=== PATIENT | female | born 1980 | race Hispanic/Latino ===

== ENCOUNTER 2021-02-21 08:42 | Emergency (ER) | payer OTHER, SELFPAY ==
--- OUTSIDE RECORDS SUMMARY | 2021-02-21 08:45 | XMS REPORT | Continuity of Care Document ---
:1980 Author Organization [facility] t Address [address] [place] [address] Care Team Providers Name Role Phone Doctor Unassigned, Name Attending Clinician Unavailable Dav Holloway Attending Clinician Problems This patient has no known problems. Allergies, Adverse Reactions, Alerts This patient has no known allergies or adverse reactions. Medications This patient has no known medications. Procedures This patient has no known procedures. Encounters Start End Encounter Admission Attending Care Care Encounter Source Date/Time Date/Time Type Type Clinicians Facility Department ID 2021-01-21 2021-01-21 Orders Doctor HASEEB [id number] 00:00:00 00:00:00 Only UnassignedDORON [id number] [place] [facility] [id number] 2021-01-14 2021-01-14 Telephone MIKE Mosley [id number] 00:00:00 00:00:00 Ingrid Demarco VENEER JOINTER OPERATOR [id number] [facility] [id number] MATERNAL [id number] & CHILD [address] [place] [address] Results This patient has no known results.
[2021-02-21] MEDS ORDERED: HYDROCODONE/APAP 5/325 MG TAB ONE (09:44)
--- NOTE | 2021-02-21 10:29 | ER ---
Nurse's Notes [facility] Name: Audrey Potter Age: 40 yrs Sex: Female : 1980 Arrival Date: 02/21/2021 Time: 08:46 Bed 16 Private MD: Diagnosis: Displaced fracture of head of right radius;Small avulsion fracture of head of right ulna Presentation: 02/21 08:54 Chief complaint: Fell out of parked van and landed on concrete onto right side, c/o hb right elbow and forearm pain /10. Care prior to arrival: None. Mechanism of Injury: Fall vehicle. Trauma event details: Injury occurred in the [facility], Injury occurred: at home. 08:54 Acuity: SHANA 4 hb 08:54 Method Of Arrival: Ambulatory hb 08:56 Coronavirus screen: At this time, the client does not indicate any symptoms associated hb with coronavirus-19. Ebola Screen: No symptoms or risks identified at this time. Initial Sepsis Screen: Does the patient meet any 2 criteria? No. Patient's initial sepsis screen is negative. Does the patient have a suspected source of infection? No. Patient's initial sepsis screen is negative. Risk Assessment: Do you want to hurt yourself or someone else? Patient reports no desire to harm self or others. Onset of symptoms was February 18, 2021. 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 - Social history:: Smoking status: Patient denies any tobacco usage or history of. Screenin:07 Abuse screen: Denies threats or abuse. Denies injuries from another. Nutritional hb screening: No deficits noted. Tuberculosis screening: No symptoms or risk factors identified. Fall Risk None identified. Assessment: 09:07 General: Appears in no apparent distress. Behavior is calm, cooperative. Pain: Pain hb currently is 8 out of 10 on a pain scale. Neuro: Level of Consciousness is awake, alert, obeys commands, Oriented to person, place, time, situation. Cardiovascular: Patient's skin is warm and dry. Respiratory: Respiratory effort is even, unlabored, Respiratory pattern is regular, symmetrical. GI: No signs and/or symptoms were reported involving the gastrointestinal system. : No signs and/or symptoms were reported regarding the genitourinary system. EENT: No signs and/or symptoms were reported regarding the EENT system. Derm: Skin is pink, warm \T\ dry. Musculoskeletal: Reports right elbow and forearm pain. 10:05 Reassessment: No changes from previously documented assessment. Patient and/or family ll1 updated on plan of care and expected duration. Pain level reassessed. 10:49 Musculoskeletal: Circulation, motion, and sensation intact. Capillary refill < 3 ll1 seconds. Vital Signs: 08:56 BP 115 / 69; Pulse 91; Resp 16; Temp 97.9(TE); Pulse Ox 98% on R/A; Weight 95.71 kg; hb Height 5 ft. 2 in. (157.48 cm); Pain 8/10; 08:56 Body Mass Index 38.59 (95.71 kg, 157.48 cm) hb ED Course: 08:46 Patient arrived in ED. mr 08:55 Triage completed. hb 08:57 Arm band placed on. hb 09:06 Smiley Alejandro RN is Primary Nurse. bw 09:07 Mikie Keita NP is PHCP. pm1 09:07 Jose Addison MD is Attending Physician. pm1 09:07 Patient has correct armband on for positive identification. Bed in low position. Call light in reach. Side rails up X 1. 09:35 Elbow Right 3 View XRAY In Process Unspecified. EDMS 09:35 Forearm Right XRAY In Process Unspecified. EDMS 10:20 Orthoglass splint: posterior long arm splint applied to the right arm. 4 10:49 No provider procedures requiring assistance completed. Patient did not have IV access ll1 during this emergency room visit. Administered Medications: 09:27 Drug: [place] (HYDROcodone-acetaminophen) 5 mg-325 mg 1 tabs Route: PO; bw 10:48 Follow up: Response: No adverse reaction; RASS: Alert and Calm (0) ll1 Outcome: 10:28 Discharge ordered by . pm1 10:50 Discharged to home ambulatory. ll1 10:50 Condition: stable 10:50 Discharge instructions given to patient, Instructed on discharge instructions, follow up and referral plans. medication usage, Demonstrated understanding of instructions, follow-up care, medications, splint care, Prescriptions given X 1. 10:50 Patient left the ED. ll1 Signatures: Dispatcher [employer] KIRBYMargarette Cox mr NeelaMikie, SAFETY ATTENDANT SAFETY ATTENDANT pm1 Melita Madison RN RN Mark Anthony Xavier 4 Joshua Minor, RN RN 1 Smiley Alejandro RN RN Corrections: (The following items were deleted from the chart) 08:58 08:54 Chief complaint: Fell out of parked van and landed on concrete onto right side, hb c/o right arm pain 06/23. hb 08:58 08:56 BP 115 / 69; Pulse 91bpm; Resp 16bpm; Pulse Ox 98% RA; Temp 97.9F Temporal; 95.71 hb kg; Height 5 ft. 2 in.; BMI: 38.5; Pain 7/10; hb
--- NOTE | 2021-02-21 10:29 | EDPHYS ---
Physician Documentation [facility] Name: Audrey Potter Age: 40 yrs Sex: Female : 1980 Arrival Date: 02/21/2021 Time: 08:46 Bed 16 Private MD: ED Physician Jose Addison HPI: 02/21 09:39 This 40 yrs old Female presents to ER via Ambulatory with complaints of Fall pm1 Injury, Arm Pain. 09:39 Details of fall: The patient fell from an upright position, while standing, and struck pm1 a concrete surface. Onset: The symptoms/episode began/occurred 2 day(s) ago. Associated injuries: The patient sustained right elbow, painful injury, swelling. Severity of symptoms: in the emergency department the symptoms are unchanged. The patient has not experienced similar symptoms in the past. The patient has not recently seen a physician. Patient was getting out of her van and the wind blew the door open. She tried to grab the door and fell out of the van landing on her right elbow. No head injury, LOC, neck pain, headache. 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 - Social history:: Smoking status: Patient denies any tobacco usage or history of. ROS: 09:39 Constitutional: Negative for fever, chills, and weight loss, Neck: Negative for injury, pm1 pain, and swelling, Cardiovascular: Negative for chest pain, palpitations, and edema, Respiratory: Negative for shortness of breath, cough, wheezing, and pleuritic chest pain, Abdomen/GI: Negative for abdominal pain, nausea, vomiting, diarrhea, and constipation, Back: Negative for injury and pain. 09:39 Skin: Negative for injury, rash, and discoloration, Neuro: Negative for headache, weakness, numbness, tingling, and seizure. 09:39 MS/extremity: Positive for pain, swelling, tenderness, of the right elbow. Exam: 09:39 Constitutional: This is a well developed, well nourished patient who is awake, alert, pm1 and in no acute distress. Head/Face: Normocephalic, atraumatic. 09:39 Back: No spinal tenderness. No costovertebral tenderness. Full range of motion. Skin: Warm, dry with normal turgor. Normal color with no rashes, no lesions, and no evidence of cellulitis. 09:39 Cardiovascular: Rate: normal, Rhythm: regular, Pulses: no pulse deficits are appreciated. 09:39 Respiratory: Exam negative for acute changes, respiratory distress, shortness of breath. 09:39 Musculoskeletal/extremity: Extremities: grossly normal except: noted in the right elbow: swelling, tenderness, There is no evidence of deformity, Circulation is intact in all extremities. 09:39 Neuro: Exam negative for acute changes, Orientation: is normal, Mentation: is normal, Motor: is normal, moves all fours. Vital Signs: 08:56 BP 115 / 69; Pulse 91; Resp 16; Temp 97.9(TE); Pulse Ox 98% on R/A; Weight 95.71 kg; hb Height 5 ft. 2 in. (157.48 cm); Pain 8/10; 08:56 Body Mass Index 38.59 (95.71 kg, 157.48 cm) hb Procedures: 10:50 Splinting: Splint applied to right arm using Orthoglass splint, applied by tech. pm1 Examined by me, post splint application: neurovascular intact, 2+ distal pulses palpable, brisk capillary refill noted, Patient tolerated well. MDM: 09:10 Patient medically screened. pm1 09:58 Data reviewed: vital signs. Data interpreted: Pulse oximetry: on room air is 98 %. pm1 Interpretation: normal. Counseling: I had a detailed discussion with the patient and/or guardian regarding: the historical points, exam findings, and any diagnostic results supporting the discharge/admit diagnosis, radiology results, the need for outpatient follow up, for definitive care, a orthopedic surgeon, to return to the emergency department if symptoms worsen or persist or if there are any questions or concerns that arise at home. 02/21 09:01 Order name: Elbow Right 3 View XRAY eb 02/21 09:01 Order name: Forearm Right XRAY eb 02/21 09:53 Order name: Splint - Elbow - Posterior; Complete Time: 10:20 pm1 Administered Medications: 09:27 Drug: [place] (HYDROcodone-acetaminophen) 5 mg-325 mg 1 tabs Route: PO; bw 10:48 Follow up: Response: No adverse reaction; RASS: Alert and Calm (0) ll1 Disposition: 16:38 Co-signature as Attending Physician, Jose Addison MD. rn Disposition: 02/21/21 10:28 Discharged to Home. Impression: Displaced fracture of head of right radius, Small avulsion fracture of head of right ulna. - Condition is Stable. - Discharge Instructions: Elbow Fracture Treated With ORIF, How to Use a Sling. - Prescriptions for Tylenol- Codeine #3 300-30 mg Oral Tablet - take 2 tablets by ORAL route every 4-6 hours As needed; 20 tablet. - Work release form, Medication Reconciliation Form, Thank You Letter, Antibiotic Education, Prescription Opioid Use form. - Follow up: Emergency Department; When: As needed; Reason: Worsening of condition. Follow up: Private Physician; When: 2 - 3 days; Reason: Recheck today's complaints, Continuance of care, Re-evaluation by your physician. - Problem is new. - Symptoms have improved. Signatures: Dispatcher [employer] EDMS Jose Addison MD MD rn Marinas, Patrick, FORMAL WEAR RENTAL CLERK FORMAL WEAR RENTAL CLERK pm1 Melita Madison RN RN hb Lewis, Lynsay, RN RN ll1 Smiley Alejandro RN RN Corrections: (The following items were deleted from the chart) 10:40 10:28 02/21/2021 10:28 Discharged to Home. Impression: Displaced fracture of head of pm1 right radius. Condition is Stable. Forms are Medication Reconciliation Form, Thank You Letter, Antibiotic Education, Prescription Opioid Use. Follow up: Emergency Department; When: As needed; Reason: Worsening of condition. Follow up: Private Physician; When: 2 - 3 days; Reason: Recheck today's complaints, Continuance of care, Re-evaluation by your physician. Problem is new. Symptoms have improved. pm1 10:50 10:40 02/21/2021 10:28 Discharged to Home. Impression: Displaced fracture of head of ll1 right radius; Small avulsion fracture of head of right ulna. Condition is Stable. Discharge Instructions: Elbow Fracture Treated With ORIF, How to Use a Sling. Prescriptions for Tylenol-Codeine #3 300-30 mg Oral Tablet - take 2 tablets by ORAL route every 4-6 hours As needed; 20 tablet. and Forms are Medication Reconciliation Form, Thank You Letter, Antibiotic Education, Prescription Opioid Use. Follow up: Emergency Department; When: As needed; Reason: Worsening of condition. Follow up: Private Physician; When: 2 - 3 days; Reason: Recheck today's complaints, Continuance of care, Re-evaluation by your physician. Problem is new. Symptoms have improved. pm1
--- NOTE | 2021-02-21 12:34 | RAD REPORT ---
EXAM DESCRIPTION: RAD - Forearm Right - 02/21/2021 9:35 am CLINICAL HISTORY: fall COMPARISON: Elbow Right 3 View dated 02/21/2021 FINDINGS: Comminuted radial head fracture is present further detailed on the separate elbow report. Remainder the radius is intact. No ulna fracture identified. No periosteal reaction. Carpal bones are normally positioned to the distal radius. Contusion and edema changes are present in the soft tissues entire length of the posterior forearm. IMPRESSION: Comminuted radial head fracture separately detailed. Contusion and/or edema changes to the posterior forearm soft tissues.
--- NOTE | 2021-02-21 12:39 | RAD REPORT ---
EXAM DESCRIPTION: RAD - Elbow Right 3 View - 02/21/2021 9:35 am CLINICAL HISTORY: fall, elbow pain COMPARISON: No comparisons FINDINGS: Radial head fracture is present with a large 15 millimeter displaced free fracture fragmen t present from the anterior margin of the radial head. This includes the articular surface. This is d isplaced laterally approximately 12 mm and displaced proximally approximately 2 cm. Transverse fractu re at the neck may be present but does not cause impaction or angulation deformity. No fracture of the distal humerus or proximal ulna. No foreign body. Soft tissue contusion and edema changes are present. IMPRESSION: Right radial head fracture is present. A 15 millimeter sized dislocated free fracture fr agment is present from the anterior margin.
[2021-02-21 17:23] VITALS: BP 115/69; TEMP 97.9; O2SAT 98
== END 2021-02-21 10:50 | disposition home or self-care (01) ==
LOC: ER 08:42
PROC: 2W38X1Z Immobilization of Right Upper Extremity using Splint (ICD-10-PCS; principal; 2021-02-21)
DX: S52.121A Displaced fracture of head of right radius, initial encounter for closed fracture (principal); S52.091A Other fracture of upper end of right ulna, initial encounter for closed fracture; V58.4XXA Person boarding or alighting a pick-up truck or van injured in noncollision transport accident, initial encounter
CPT/HCPCS: 99284